=== PATIENT | female | born 1965 | race Caucasian/White ===

== ENCOUNTER 2024-02-19 17:02 | Emergency (ER) | payer SELFPAY ==
--- NOTE | ~2024-02-19 | CT_ITS ---
EXAMINATION: CT brain wo con DATE: 02/19/2024 20:00 INDICATION: Fall with posterior head injury TECHNIQUE: Computed tomography (CT) of the head was performed without intravenous contrast. Sagittal and coronal reconstructions were performed. The mA was adjusted according to patient size. Iterative reconstruction technique was employed. The dose-length product was 529.67 mGy-cm. COMPARISON: None FINDINGS: No fracture. No acute intracranial hemorrhage, acute infarction or abnormal extra axial fluid collect ion. Ventricles are normal and symmetric. No mass/mass effect. The orbits, paranasal sinuses and mast oid air cells are normal. IMPRESSION: 1. Normal brain. No fracture or acute intracranial process. Reviewed, dictated and finalized at location A.
--- NOTE | ~2024-02-19 | XR_ITS ---
EXAMINATION: XR wrist LT min 3V DATE: 02/19/2024 19:50 INDICATION: Lateral left wrist pain post fall onto outstretched hand TECHNIQUE: Posteroanterior, ulnar deviation, oblique, and lateral views of the left wrist were obtain ed. COMPARISON: none FINDINGS: Alignment is normal. No fracture. 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 Soft tissues are unremarkable. IMPRESSION: 1. No acute osseous abnormality. Reviewed, dictated and finalized at location A.
[2024-02-19 17:33] VITALS: BP 154/76; PULSE 69; RESP 20; TEMP 35.9; O2SAT 99
[2024-02-19] MEDS: oxyCODONE/ACETAMINOPHEN (*CRX) 5-325 MG TABLET 1 TABLET PO (20:19)
[2024-02-19 21:04] VITALS: BP 125/86; PULSE 75; RESP 18; O2SAT 100
--- NOTE | 2024-02-20 03:14 | ED.FALL ---
HPI - Fall General Chief Complaint: Fall Stated Complaint: Fall Time Seen by Provider: 02/19/24 19:56 History of Present Illness HPI Narrative: Patient thinks she caught her foot on something and tripped backwards, hitting her head against a pole, and injuring her left wrist. Denies any loss of consciousness, no nausea vomiting, she does have a headache and wrist pain. Related Data Allergies Allergy/AdvReac Type Severity Reaction Status Date / Time iohexol Allergy Mild Hives Verified 02/19/24 17:32 [From contrast - CT, X-RAY] Review of Systems Review of Systems: All systems reviewed & are unremarkable except as noted in HPI and below Exam Narrative: EXAMINATION OF ORGAN SYSTEMS/BODY AREAS: Constitutional: Vital signs per nursing GENERAL:[No acute distress, non-toxic appearing.] HEAD: Some tenderness to the back of her head EYES: EOMI, conjunctiva normal ENT: Hearing grossly intact NECK: No midline tenderness LUNGS: Nonlabored breathing. HEART: [Regular rate and rhythm], normal radial pulses ABD: [Soft], nondistended EXT: Normal range of motion, no deformity, some tenderness to the ulnar wrist SKIN: [No rashes or lesions.] NEURO: [Alert and oriented x 3. No gross focal sensory or strength deficits.] PSYCH: Normal affect Course Vital Signs Vital signs: Vital Signs Temperature 96.7 F L 02/19/24 17:33 Pulse Rate 69 02/19/24 17:33 Respiratory Rate 20 02/19/24 17:33 Blood Pressure 154/76 H 02/19/24 17:33 Pulse Oximetry 99 02/19/24 17:33 Oxygen Delivery Room Air 02/19/24 17:33 Temperature 96.7 F L 02/19/24 17:33 Pulse Rate 75 02/19/24 21:04 Respiratory Rate 18 02/19/24 21:04 Blood Pressure 125/86 02/19/24 21:04 Pulse Oximetry 100 02/19/24 21:04 Oxygen Delivery Room Air 02/19/24 17:33 MDM - Fall MDM Narrative Medical decision making narrative: Patient presents after head injury and wrist injury from mechanical fall, she is well-appearing here, but she does have some tenderness to the back of her head to her left wrist, CT imaging of the head is thankfully normal, left wrist x-ray independently interpreted by myself no obvious acute fracture or dislocation, rain wrap applied and pain medication given and return precautions discussed. Discharge Plan Discharge Clinical Impression: Head injury, Injury of wrist Patient Disposition: Home, Self-Care Condition: Stable Instructions: Antibiotic Form, Wrist Injury (ED), Head Injury (ED) Prescriptions: New acetaminophen [Tylenol Extra Strength] 500 mg tablet 1,000 mg PO Q6H PRN (Reason: pain) Qty: 50 0RF Follow-up/Referrals: Ra Triana MD [Primary Care Provider] - 2 Days Stand Alone Forms: Work/School Release IP
== END 2024-02-19 21:06 | disposition home or self-care (01) ==
PROVIDERS: Emergency Provider Emergency Medicine; PCP Emergency Medicine
DX: S09.90XA Unspecified injury of head, initial encounter (principal); S69.92XA Unspecified injury of left wrist, hand and finger(s), initial encounter; W01.198A Fall on same level from slipping, tripping and stumbling with subsequent striking against other object, initial encounter
CPT/HCPCS: 70450; 73110; 99284; A9270